=== PATIENT | female | born 1945 | race Caucasian/White ===

== ENCOUNTER 2023-08-17 08:25 | Emergency (ER) | payer OTHER, MEDICARE, BC ==
[2023-08-17] MEDS ORDERED: Boostrix 0.5 ML (Tdap) VIAL (>/=7 yrs of age) ONE (09:28)
== END 2023-08-17 09:56 | disposition home or self-care (01) ==
LOC: ERS 08:25
DX: S81.851A Open bite, right lower leg, initial encounter (principal); S80.212A Abrasion, left knee, initial encounter; I10 Essential (primary) hypertension; E03.9 Hypothyroidism, unspecified; Z79.899 Other long term (current) drug therapy; Z23 Encounter for immunization; W54.0XXA Bitten by dog, initial encounter
CPT/HCPCS: 90471; 90715

== ENCOUNTER 2023-08-29 15:20 | Inpatient (IN) | payer OTHER, MEDICARE, BC ==
[2023-08-29] MEDS ORDERED: cefTRIAXone (ROCEPHIN) 500 MG VIAL ONE (16:13)
[2023-08-29] MEDS ORDERED: cefTRIAXone (ROCEPHIN) 2 GM VIAL ONE (16:14)
[2023-08-29] MEDS ORDERED: Sodium Chloride 0.9% 100 ML ONE (16:15)
[2023-08-29] MEDS ORDERED: cefTRIAXone (ROCEPHIN) 1 GM VIAL ONE (16:18)
[2023-08-29] MEDS ORDERED: Vancomycin (BATCH) 1.5 GM in Premix 1 BAG IVPB SCH (16:30)
[2023-08-29 16:52] LABS: #Eosinphils 0.1 thou/uL (0.0-0.7); #Monocytes 0.8 thou/uL (0.11-0.59); #Neutrophils 6.5 thou/uL (1.40-6.50); %Basophils 0.5 % (0.0-1.0); %Lymphocytes 9.5 % (21.0-51.0); %Monocytes 9.5 % (0.0-10.0); Hemoglobin 11.9 g/dL (12.0-16.0); Mean Corpuscular HGB CONC 33.1 g/dL (32.0-36.0); Mean Corpuscular Hemoglobin 31.1 pg (27.0-31.0); Mean Platelet Volume 10.1 fL (7.4-10.4); Platelet Count 224 10x3/uL (130-400); RBC Distribution Width 12.6 % (11.5-14.5); Red Blood Cell (RBC) Count 3.83 mill/uL (4.20-5.40); White Blood Cell (WBC) Count 8.2 10x3/uL (4.8-10.8)
[2023-08-29 17:14] LABS: ALT (SGPT) 15 U/L (8-55); AST (SGOT) 16 U/L (5-34); Albumin 4.4 g/dL (3.4-4.8); Alkaline Phosphatase 84 U/L (40-110); Anion Gap 13 mmol/L (10-20); BUN (Urea Nitrogen) 21 mg/dL (9.8-20.1); Bilirubin, Total 0.4 mg/dL (0.2-1.2); Calc. Creatinine Clearance 0 mL/min (70-130); Calcium 9.5 mg/dL (7.8-10.44); Carbon Dioxide 27 mmol/L (23-31); Chloride 102 mmol/L (98-107); Estimated GFR 49; Globulin 3.2 g/dL (2.4-3.5); Glucose 144 mg/dL (83-110); Potassium 4.4 mmol/L (3.5-5.1); Protein, Total 7.6 g/dL (5.8-8.1); Sodium 138 mmol/L (136-145)
[2023-08-29] MEDS ORDERED: HYDROcodone/Acetaminophen 10/325 mg Tablet PO PRN (17:31)
[2023-08-29] MEDS ORDERED: Loperamide HCl 2 MG CAP PO PRN (17:31)
[2023-08-29] MEDS ORDERED: Ondansetron PF 4 MG/2 ML Vial IVP PRN (17:31)
[2023-08-29] MEDS ORDERED: Acetaminophen 325 MG TAB PO PRN (17:31)
[2023-08-29] MEDS ORDERED: Senokot S 8.6-50 MG TAB PO PRN (17:31)
[2023-08-29] MEDS ORDERED: HYDROcodone/Acetaminophen 5/325 mg Tablet PO PRN (17:31)
[2023-08-29] MEDS ORDERED: metroNIDAZOLE 500 MG/100 ML BAG ONE (17:44)
[2023-08-29 20:05] VITALS: BMI 22.8
[2023-08-29] MEDS ORDERED: Piperacillin/Tazobactam 3.375 GM in Sodium Chloride 0.9% 100 ML IVPB SCH ×2 (21:00→23:59)
[2023-08-29] MEDS: Famotidine/PF 20 mg/2ml Vial SLOW IVP SCH (21:25)
[2023-08-30] MEDS: Piperacillin/Tazobactam 3.375 GM in Sodium Chloride 0.9% 100 ML IVPB SCH ×3 (01:38→17:34)
[2023-08-30 07:09] LABS: #Eosinphils 0.1 thou/uL (0.0-0.7); #Monocytes 0.8 thou/uL (0.11-0.59); #Neutrophils 4.6 thou/uL (1.40-6.50); %Basophils 0.5 % (0.0-1.0); %Eosinophils 1.9 % (0.0-10.0); %Lymphocytes 13.8 % (21.0-51.0); %Monocytes 12.6 % (0.0-10.0); %Neutrophils 70.9 % (42.0-75.0); Hematocrit 36.2 % (36.0-47.0); Hemoglobin 11.8 g/dL (12.0-16.0); Mean Corpuscular HGB CONC 32.6 g/dL (32.0-36.0); Mean Corpuscular Hemoglobin 30.6 pg (27.0-31.0); Mean Corpuscular Volume 93.8 fl (78.0-98.0); Platelet Count 198 10x3/uL (130-400); RBC Distribution Width 12.5 % (11.5-14.5); Red Blood Cell (RBC) Count 3.86 mill/uL (4.20-5.40); White Blood Cell (WBC) Count 6.5 10x3/uL (4.8-10.8)
[2023-08-30 07:40] LABS: ALT (SGPT) 15 U/L (8-55); AST (SGOT) 19 U/L (5-34); Alkaline Phosphatase 74 U/L (40-110); Anion Gap 14 mmol/L (10-20); BUN (Urea Nitrogen) 13 mg/dL (9.8-20.1); Bilirubin, Total 0.7 mg/dL (0.2-1.2); Calc. Creatinine Clearance 56 mL/min (70-130); Carbon Dioxide 23 mmol/L (23-31); Chloride 106 mmol/L (98-107); Estimated GFR 65; Globulin 3.3 g/dL (2.4-3.5); Glucose 91 mg/dL (83-110); Potassium 4.4 mmol/L (3.5-5.1); Protein, Total 7.3 g/dL (5.8-8.1); Sodium 139 mmol/L (136-145)
[2023-08-30] MEDS: Famotidine/PF 20 mg/2ml Vial SLOW IVP SCH ×2 (08:48→20:47)
[2023-08-30] MEDS: Ciprofloxacin 500 MG TAB PO SCH (20:47)
[2023-08-30] MEDS: Clindamycin 150 MG CAP PO SCH (20:47)
[2023-08-30] MEDS ORDERED: Miconazole 2% Vaginal Cream 45 GM TUBE VAG SCH (21:00)
[2023-08-31] MEDS: Clindamycin 150 MG CAP PO SCH ×2 (02:10→07:44)
[2023-08-31] MEDS: Ciprofloxacin 500 MG TAB PO SCH (05:50)
[2023-08-31] MEDS: Famotidine/PF 20 mg/2ml Vial SLOW IVP SCH (07:43)
[2023-08-31 07:44] VITALS: BP 146/64; TEMP 97.3
[2023-08-31] MEDS ORDERED: Saccharomyces boulardii 250 MG CAP PO SCH (10:30)
[2023-08-31 12:48] LABS: Hemoglobin A1c 6.1 % (4.0-6.0)
[2023-08-31 13:14] LABS: Free T4 (Free Thyroxine) 0.88 ng/dL (0.70-1.48); Thyroid Stimulating Hormone 1.6829 uIU/mL (0.35-4.94)
== END 2023-08-31 11:30 | disposition home or self-care (01) | DRG 603 ==
LOC: ERS 15:20 → T4-B 17:16 → OBSVTOIN 08-30 13:30
PROVIDERS: ADMIT Internal Medicine; ATTEND Family Medicine
DX: L03.115 Cellulitis of right lower limb (principal); W54.0XXD Bitten by dog, subsequent encounter; Z79.899 Other long term (current) drug therapy; E03.9 Hypothyroidism, unspecified; E78.00 Pure hypercholesterolemia, unspecified; R73.9 Hyperglycemia, unspecified; S81.851D Open bite, right lower leg, subsequent encounter; Z98.890 Other specified postprocedural states; R73.03 Prediabetes
CPT/HCPCS: 36415; 80053; 83036; 84439; 84443; 84481; 85025; 96365; 96367; 96375; 96376; 97139; G0378; J0696; J1650; J2543; J3370; J3490; S0028

== ENCOUNTER 2024-02-29 12:13 | Emergency (ER) | payer MEDICARE, BC ==
[2024-02-29 13:46] LABS: #Basophils 0.03 10x3/uL (0.0-0.2); %Basophils 0.4 % (0.0-1.0); %Lymphocytes 12.9 % (21.0-51.0); %Monocytes 10.1 % (0.0-10.0); %Neutrophils 75.3 % (42.0-75.0); Hematocrit 38.4 % (36.0-47.0); Hemoglobin 12.4 g/dL (12.0-16.0); Mean Corpuscular HGB CONC 32.3 g/dL (32.0-36.0); Mean Corpuscular Hemoglobin 30.5 pg (27.0-31.0); Mean Corpuscular Volume 94.3 fL (78.0-98.0); Mean Platelet Volume 10.2 fL (7.4-10.4); Platelet Count 193 10x3/uL (130-400); RBC Distribution Width 12.9 % (11.5-14.5); Red Blood Cell (RBC) Count 4.07 mill/uL (4.20-5.40)
[2024-02-29 13:57] LABS: ALT (SGPT) 29 U/L (8-55); AST (SGOT) 18 U/L (5-34); Albumin 3.8 g/dL (3.4-4.8); Alkaline Phosphatase 66 U/L (40-110); Anion Gap 18 mmol/L (10-20); BUN (Urea Nitrogen) 23 mg/dL (9.8-20.1); Bilirubin, Total 0.4 mg/dL (0.2-1.2); Calc. Creatinine Clearance 0 mL/min (70-130); Calcium 9.1 mg/dL (7.8-10.44); Carbon Dioxide 25 mmol/L (23-31); Chloride 105 mmol/L (98-107); Estimated GFR 69; Globulin 2.9 g/dL (2.4-3.5); Glucose 81 mg/dL (83-110); Magnesium 2.3 mg/dL (1.6-2.6); Potassium 4.5 mmol/L (3.5-5.1); Protein, Total 6.7 g/dL (5.8-8.1); Sodium 143 mmol/L (136-145)
[2024-02-29 14:02] LABS: Troponin I Less than 0.010 ng/mL (< 0.028)
[2024-02-29] MEDS ORDERED: Apixaban 5 MG TAB ONE (16:29)
== END 2024-02-29 17:01 | disposition home or self-care (01) ==
LOC: ERS 12:13
DX: I48.91 Unspecified atrial fibrillation (principal); E78.5 Hyperlipidemia, unspecified; E03.9 Hypothyroidism, unspecified; Z79.899 Other long term (current) drug therapy
CPT/HCPCS: 36415; 71045; 80053; 83735; 83880; 84443; 84484; 85025; 93005